=== PATIENT | male | born 1980 | race Caucasian/White ===

== ENCOUNTER 2024-03-29 16:06 | Outpatient (CLI) | payer BC, SELFPAY ==
--- NOTE | ~2024-03-29 | XR_ITS ---
EXAM: XR toe 1st LT min 2V, XR foot LT standing 2V DATE: 03/29/2024 16:28 HISTORY: rule out gout . COMPARISON: None available. FINDINGS: Normal mineralization. No fracture or dislocation. No lytic or blastic lesion. Mild osteop hytosis and subchondral sclerosis at the first MTP joint. Soft tissue swelling over the first MTP benjy nt. Mild hallux valgus. Loss of the normal longitudinal arch. Plantar enthesopathy. No erosion or per iosteal change. Amorphous calcification seen in the frontal view of the foot, probably overlying the medial malleolus, not definitively seen in the lateral view. IMPRESSION: Mild osteoarthritis at the first MTP joint. First MTP joint soft tissue swelling. Pes gagandeep nus. Reviewed, dictated and finalized at location [facility]. [facility] IMPRESSION: Mild osteoarthritis at the first MTP joint. First MTP joint soft ti ssue swelling. Pes planus.
== END 2024-03-29 16:07 | disposition home or self-care (01) ==
PROVIDERS: PCP Family Medicine
DX: M79.672 Pain in left foot (principal); M19.072 Primary osteoarthritis, left ankle and foot
CPT/HCPCS: 73620; 73660